=== PATIENT | male | born 1970 | race Caucasian/White ===

== ENCOUNTER 2023-05-28 04:34 | Emergency (ER) | payer BC ==
[2023-05-28] MEDS: Sodium Chloride 0.9% 2.5 ML Syringe FLUSH PRN (04:50)
[2023-05-28] MEDS: Sodium Chloride 0.9% 1,000 ML IV ONE ×2 (04:50→06:02)
[2023-05-28] MEDS: Ondansetron 4 MG/2 ML SDV IVPUSH ONE ×2 (04:51→05:00)
[2023-05-28] MEDS: Morphine 4 MG/ML Syringe IVPUSH ONE (04:51)
[2023-05-28 04:54] LABS: BASOPHILS ABSOLUTE AUTO 0.05 K/uL (0.00-0.20); BASOPHILS PERCENT AUTO 0.5 % (0.0-1.0); EOSINOPHILS PERCENT AUTO 0.9 % (0.0-6.0); HEMATOCRIT 43.4 % (42.0-52.0); HEMOGLOBIN 14.9 g/dL (14.0-18.0); IMMATURE GRAN ABSOLUTE AUTO 0.07 K/uL (0.00-0.05); IMMATURE GRAN PERCENT AUTO 0.6 % (0.0-0.4); LYMPHOCYTES ABSOLUTE AUTO 2.27 K/uL (1.00-4.80); LYMPHOCYTES PERCENT AUTO 20.5 % (24.0-44.0); MEAN CORPUSCULAR HEMOGLOBIN 30.3 pg (28.0-32.0); MEAN CORPUSCULAR HGB CONC 34.3 g/dL (32.0-36.0); MEAN CORPUSCULAR VOLUME 88.2 fL (83.0-99.0); MEAN PLATELET VOLUME 8.6 fL (9.4-12.4); MONOCYTES ABSOLUTE AUTO 0.83 K/uL (0.00-0.80); MONOCYTES PERCENT AUTO 7.5 % (0.0-8.0); NEUTROPHILS ABSOLUTE AUTO 7.75 K/uL (1.80-7.70); PLATELET COUNT,PLT 335 K/uL (150-400); RED BLOOD CELL COUNT 4.92 M/uL (4.52-5.90); WHITE BLOOD CELL COUNT,WBC 11.07 K/uL (3.9-11.3)
[2023-05-28] MEDS: Sodium Chloride 0.9% 10 ML Syringe FLUSH PRN (04:54)
[2023-05-28 05:15] LABS: A/G RATIO 1.4 (0.9-1.6); ALBUMIN 4.2 g/dL (3.4-5.0); BILIRUBIN TOTAL 0.3 mg/dL (0.2-1.0); CALCIUM 9.4 mg/dL (8.5-10.1); CARBON DIOXIDE,CO2 25.9 mmol/L (21.0-32.0); CREATININE 1.3 mg/dL (0.8-1.3); EST CRCL DRUG DOSING (CG) 64.2 mL/min; POTASSIUM,K 3.8 mmol/L (3.5-5.1); PROTEIN TOTAL,TP 7.3 g/dL (6.4-8.2)
[2023-05-28] MEDS: Iopamidol 755 MG/ML 500 ML Multipack Bottle IVPUSH STA (05:27)
[2023-05-28] MEDS: Ketorolac 30 MG/ML SDV IVPUSH ONE (05:38)
[2023-05-28 07:27] LABS: APPEARANCE,URINE CLEAR; BILIRUBIN,URINE NEGATIVE (NEGATIVE); COLOR,URINE YELLOW; GLUCOSE,URINE NEGATIVE (NEGATIVE); KETONES,URINE NEGATIVE (NEGATIVE); LEUKOCYTE ESTERASE,URINE NEGATIVE (NEGATIVE); NITRITE,URINE NEGATIVE (NEGATIVE); OCCULT BLOOD,URINE MODERATE (NEGATIVE); PROTEIN,URINE NEGATIVE (NEGATIVE); UROBILINOGEN,URINE 0.2 EU/dL (<2.0)
[2023-05-28 07:37] LABS: BACTERIA,URINE FEW (NEGATIVE); EPITHELIAL CELLS,URINE RARE (NONE-FEW); MUCUS,URINE LIGHT (NONE-MOD); WBC,URINE 0-1 (0-5/HPF)
== END 2023-05-28 08:56 | disposition home or self-care (01) ==
LOC: MW.ED 04:34
DX: N13.2 Hydronephrosis with renal and ureteral calculous obstruction (principal); Z79.899 Other long term (current) drug therapy
CPT/HCPCS: 36415; 74177; 80053; 81001; 83690; 85025; 87086; 96361; 96374; 96375; 99284; J1885; J2270; J2405; J3490; J7030; Q9967